=== PATIENT | female | born 1980 | race African-American/Black ===

== ENCOUNTER 2020-10-20 23:25 | Emergency (ER) | payer SELFPAY ==
[2020-10-20] MEDS ORDERED: diphenhydrAMINE 50 MG/ML VIAL ONE (23:38)
[2020-10-20] MEDS ORDERED: methylPREDNISolone Sod Succ/PF 125 MG/2 ML VIAL ONE (23:38)
[2020-10-20] MEDS ORDERED: Famotidine In NaCl 20 mg/50 ml Premix Bag ONE (23:38)
== END 2020-10-21 00:57 | disposition home or self-care (01) ==
LOC: BURERS 23:25
DX: T78.40XA Allergy, unspecified, initial encounter (principal); I10 Essential (primary) hypertension; D64.9 Anemia, unspecified; G43.909 Migraine, unspecified, not intractable, without status migrainosus
CPT/HCPCS: 96365; 96375; J1200; J2930

== ENCOUNTER 2020-11-22 16:11 | Emergency (ER) | payer SELFPAY ==
[2020-11-22] MEDS ORDERED: Ibuprofen 800 MG TAB ONE (16:57)
[2020-11-22] MEDS ORDERED: Acetaminophen 500 MG TAB ONE (16:57)
[2020-11-22 17:23] LABS: #Basophils 0.1 thou/uL (0.0-0.2); #Lymphocytes 3.2 thou/uL (1.20-3.40); #Monocytes 0.5 thou/uL (0.11-0.59); #Neutrophils 6.9 thou/uL (1.40-6.50); %Eosinophils 0.3 % (0.0-10.0); %Lymphocytes 29.7 % (21.0-51.0); %Monocytes 4.9 % (0.0-10.0); %Neutrophils 64.2 % (42.0-75.0); Hemoglobin 11.7 g/dL (12.0-16.0); Mean Corpuscular HGB CONC 35.3 g/dL (32.0-36.0); Mean Corpuscular Volume 87.9 fL (78.0-98.0); Mean Platelet Volume 7.9 fL (7.4-10.4); Platelet Count 234 thou/uL (130-400); RBC Distribution Width 16.5 % (11.5-14.5); Red Blood Cell (RBC) Count 3.76 mill/uL (4.20-5.40); White Blood Cell (WBC) Count 10.7 thou/uL (4.8-10.8)
[2020-11-22 17:36] LABS: ALT (SGPT) 42 U/L (8-55); AST (SGOT) 35 U/L (5-34); Albumin 3.9 g/dL (3.5-5.0); Alkaline Phosphatase 86 U/L (40-110); Anion Gap 13 mmol/L (10-20); BUN (Urea Nitrogen) 9 mg/dL (7.0-18.7); Bilirubin, Total 1.9 mg/dL (0.2-1.2); Calc. Creatinine Clearance 0 mL/min (70-130); Calcium 8.6 mg/dL (7.8-10.44); Carbon Dioxide 25 mmol/L (22-29); Chloride 102 mmol/L (98-107); Globulin 3.7 g/dL (2.4-3.5); Glucose 110 mg/dL (70-105); Potassium 3.2 mmol/L (3.5-5.1); Protein, Total 7.6 g/dL (6.0-8.3); Sodium 137 mmol/L (136-145)
[2020-11-22 17:51] LABS: Bilirubin Moderate (Negative); Blood, Urine Moderate (Negative); Clarity Cloudy (Clear); Glucose, Urine (Dipstick) 100 mg/dL (Negative); Ketone, Urine Trace mg/dL (Negative); Leukocyte Negative (Negative); Nitrite Negative (Negative); Protein, Urine (Dipstick) > or equal to 300 mg/dL (Neg-Trace); Specific Gravity, Urine 1.025 (1.002-1.036); Urobilinogen > or = 8.0 mg/dL (Less than 2); pH, Urine 5.5 (5.0-9.0)
[2020-11-22 17:54] LABS: Bacteria/HPF 3+ HPF (None Seen); Mucous/LPF Few LPF (<2+); WBC/HPF 0-3 HPF (0-3); Yeast-Budding Rare HPF (None Seen)
[2020-11-22 17:55] LABS: Pregnancy Test - Urine (BHCG) Negative (Negative); Pregu Control Background? CLEAR/WHITE (CLR/WHITE); Pregu Control Bar Appear? YES (CONTROL BAR); Specific Gravity 1.025 (1.002-1.036)
[2020-11-22 18:18] LABS: SARS-CoV-2 NAA Rapid Test DETECTED (NotDetected)
== END 2020-11-22 20:00 | disposition home or self-care (01) ==
LOC: BURERS 16:11
DX: U07.1 COVID-19 (principal); A08.4 Viral intestinal infection, unspecified; I10 Essential (primary) hypertension
CPT/HCPCS: 71045; 80053; 81003; 81015; 81025; 83605; 84484; 85025; 85379; 87040; 93005; U0002